=== PATIENT | female | born 1995 ===

== ENCOUNTER 2025-02-01 15:37 | Inpatient (IN) | payer BC ==
[2025-02-01] MEDS ORDERED: Misoprostol 200 MCG Tab PO PRN (15:53)
[2025-02-01] MEDS ORDERED: Lidocaine 1% 50 ML MDV INJECT PRN (15:53)
[2025-02-01] MEDS ORDERED: Sodium Chloride 0.9% 2.5 ML Syringe FLUSH PRN (15:53)
[2025-02-01] MEDS ORDERED: Sodium Chloride 0.9% 20 ML SDV IV PRN (15:53)
[2025-02-01] MEDS ORDERED: Water For Irrigation,Sterile 1,000 ML Container IRR PRN (15:53)
[2025-02-01] MEDS ORDERED: Sodium Chloride 0.9% 10 ML Syringe FLUSH PRN (15:53)
[2025-02-01] MEDS ORDERED: Butorphanol 2 MG/ML SDV IVPUSH PRN (15:53)
[2025-02-01] MEDS ORDERED: Terbutaline 1 MG/ML SDV SUBCUT PRN (15:53)
[2025-02-01] MEDS ORDERED: Carboprost Tromethamine 250 MCG/1 mL Vial IM PRN (15:53)
[2025-02-01] MEDS ORDERED: Ondansetron 4 MG/2 ML SDV IVPUSH PRN (15:53)
[2025-02-01] MEDS ORDERED: Methylergonovine 0.2 MG/1 ML Amp IM PRN (15:53)
[2025-02-01] MEDS ORDERED: Tranexamic Acid in NACL,ISO-OS 1,000 MG in Premix Bag 1 BAG IV PRN (15:53)
[2025-02-01] MEDS ORDERED: Oxytocin/0.9 % Sodium Chloride 30 UNIT/500 ML BAG IV SCH (16:00)
[2025-02-01] MEDS: Misoprostol 25 MCG (1/4 of 100 MCG) Tab VAG PRN (16:16)
[2025-02-01] MEDS ORDERED: ePHEDrine 50 MG/ML SDV IVPUSH PRN (16:46)
[2025-02-01] MEDS ORDERED: Phenylephrine HCl In 0.9% NaCl 1 MG/10 ML Syringe IVPUSH PRN (16:46)
[2025-02-01 16:55] LABS: HEMATOCRIT 38.2 % (37.0-47.0); HEMOGLOBIN 13.1 g/dL (12.0-16.0); MEAN CORPUSCULAR HEMOGLOBIN 32.3 pg (28.0-32.0); MEAN CORPUSCULAR HGB CONC 34.3 g/dL (32.0-36.0); MEAN CORPUSCULAR VOLUME 94.1 fL (83.0-99.0); MEAN PLATELET VOLUME 12.8 fL (9.4-12.3); PLATELET COUNT,PLT 169 K/uL (150-400); RED BLOOD CELL COUNT 4.06 M/uL (4.10-5.30); WHITE BLOOD CELL COUNT,WBC 11.17 K/uL (3.9-11.3)
[2025-02-01] MEDS ORDERED: dexmedeTOMIDine HCl 200 MCG/2 ML SDV EPIDUR SCH (17:00)
[2025-02-01] MEDS: Lactated Ringers 1,000 ML IV SCH (20:26)
[2025-02-02] MEDS: Ropivacaine HCl/PF 400 MG in Premix Bag 1 BAG EPIDUR SCH (00:12)
[2025-02-02] MEDS: Oxytocin/0.9 % Sodium Chloride 30 UNIT/500 ML BAG IV SCH (02:38)
[2025-02-02] MEDS ORDERED: fentaNYL 100 MCG/2 ML SDV ONE (15:09)
[2025-02-02] MEDS ORDERED: Bupivacaine 0.25% 30 ML SDV ONE (15:10)
[2025-02-02] MEDS: Ampicillin/Sulbactam Na 3 GM in Sodium Chloride 0.9% 100 ML IV ONE (15:54)
[2025-02-02] MEDS: Acetaminophen 500 MG Tab PO ONE (15:56)
[2025-02-02] MEDS ORDERED: Citric Acid/Sodium Citrate Solution 30 ML Cup ONE (18:40)
[2025-02-02] MEDS ORDERED: oxyCODONE 5 MG Tab PO PRN (19:47)
[2025-02-02] MEDS ORDERED: Lanolin 100% Cream 7 GM Tube TOP PRN (19:47)
[2025-02-02 20:36] LABS: PH,UMBILICAL ARTERIAL 7.334 (7.18-7.38); PH,UMBILICAL VENOUS 7.336 (7.25-7.45)
[2025-02-02] MEDS: Ampicillin/Sulbactam Na 1.5 GM in Sodium Chloride 0.9% 50 ML IV SCH (22:21)
[2025-02-02] MEDS: Ibuprofen 800 MG Tab PO PRN (22:21)
[2025-02-02] MEDS: Witch Hazel Medicated Pads 40/Jar TOP PRN (22:22)
[2025-02-02] MEDS: Benzocaine/Menthol 20%-0.5% Spray 78 GM Cannister TOP PRN (22:22)
[2025-02-03] MEDS: Acetaminophen 500 MG Tab PO PRN (05:16)
[2025-02-03 06:31] LABS: HEMATOCRIT 34.9 % (37.0-47.0); HEMOGLOBIN 12.2 g/dL (12.0-16.0)
[2025-02-04] MEDS: Docusate Sodium 100 MG Cap PO PRN (07:59)
== END 2025-02-04 14:20 | disposition home or self-care (01) | DRG 560 ==
LOC: MW.LAB 15:37 → MW.OB 15:40 → OBSVTOIN 02-02 19:28 → MW.OB 02-02 23:18
PROVIDERS: ADMIT Obstetrics & Gynecology; ATTEND Obstetrics & Gynecology
PROC: 10E0XZZ Delivery of Products of Conception, External Approach (ICD-10-PCS; principal; 2025-02-02)
PROC: 0HQ9XZZ Repair Perineum Skin, External Approach (ICD-10-PCS; 2025-02-02)
PROC: 3E0R3BZ Introduction of Anesthetic Agent into Spinal Canal, Percutaneous Approach (ICD-10-PCS; 2025-02-02)
PROC: 00HU33Z Insertion of Infusion Device into Spinal Canal, Percutaneous Approach (ICD-10-PCS; 2025-02-02)
PROC: 10H07YZ Insertion of Other Device into Products of Conception, Via Natural or Artificial Opening (ICD-10-PCS; 2025-02-02)
PROC: 3E0P7VZ Introduction of Hormone into Female Reproductive, Via Natural or Artificial Opening (ICD-10-PCS; 2025-02-02)
DX: O48.0 Post-term pregnancy (principal); Z37.0 Single live birth; O70.0 First degree perineal laceration during delivery; O76 Abnormality in fetal heart rate and rhythm complicating labor and delivery; Z3A.41 41 weeks gestation of pregnancy; O98.32 Other infections with a predominantly sexual mode of transmission complicating childbirth; A60.09 Herpesviral infection of other urogenital tract; Z98.890 Other specified postprocedural states; O42.02 Full-term premature rupture of membranes, onset of labor within 24 hours of rupture; O99.214 Obesity complicating childbirth; Z87.891 Personal history of nicotine dependence
CPT/HCPCS: 01967; 36415; 51702; 59025; 59409; 82803; 84112; 85014; 85018; 85027; 86592; 86850; 86900; 86901; A9270-GY; J0295; J0665; J2590; J2795; J3010; J7120